=== PATIENT | female | born 1970 | race Caucasian/White ===

== ENCOUNTER 2020-08-19 11:31 | Outpatient (REF) | payer BC, SELFPAY ==
--- NOTE | ~2020-08-19 | MM_ITS ---
EXAMINATION: MM SCREENING DIGITAL BREAST TOMOSYNTHESIS, BILATERAL CLINICAL INFORMATION: Screening. Asymptomatic. The lifetime risk of breast cancer based on the Tyrer-Cuzick Model is 7%. COMPARISON: Mammography: 03/12/2018, 01/23/2017, 01/16/2017 TECHNIQUE: Digital breast tomosynthesis is performed in both the craniocaudal and mediolateral oblique views along with computer-aided detection (CAD). Synthesized 2D images are generated from the tomosynthesis. FINDINGS: The breasts are heterogeneously dense, which may obscure small masses (ACR BI-RADS breast composition Category c). Right breast parenchymal pattern is similar to prior studies. No developing density or interval mass or architectural abnormality. Neither breast shows abnormal calcifications. The axilla and skin contours are unremarkable. Left CC view has asymmetric density central breast along posterior nipple line 5 cm from nipple. This may represent shifting fibroglandular tissue with positioning. Patient will be recalled to further characterize. MM/MM tomosynthesis screening BI IMPRESSION: 1. Left: Asymmetric density central breast on CC view, possibly summation artifact. 2. Right: No mammographic evidence of malignancy. ASSESSMENT: BI-RADS 0: Incomplete - Need Additional Imaging Evaluation RECOMMENDATION: 1. Additional views of the left breast (3D spot CC; 3D rolled CC x2). 2. Targeted ultrasound if warranted after review of the additional views. 3. Radiology department staff will contact the patient for additional imaging. This patient's information was entered into a reminder system with a target due date for their next mammogram.
== END 2020-08-19 11:32 | disposition home or self-care (01) ==
LOC: HO.MAMMO 11:31
PROVIDERS: PCP Nurse Practitioner Family; Visit Provider Nurse Practitioner Family
DX: Z12.31 Encounter for screening mammogram for malignant neoplasm of breast (principal)
CPT/HCPCS: 77063; 77067

== ENCOUNTER 2020-08-24 11:15 | Outpatient (REF) | payer BC, SELFPAY ==
--- NOTE | ~2020-08-24 | MM_ITS ---
EXAMINATION: MM DIAGNOSTIC DIGITAL BREAST TOMOSYNTHESIS, LEFT CLINICAL INFORMATION: Recall from screening for asymmetric density central breast near posterior nipple line limited to one view, possibly summation artifact or shifting fibroglandular tissue. COMPARISON: Mammography: 08/19/2020, 03/12/2018, 01/16/2017 TECHNIQUE: Digital breast tomosynthesis is performed. 2D images are generated from the tomosynthesis. The following views are obtained: 3-D rolled CC x2, 3-D spot CC. FINDINGS: The breasts are heterogeneously dense, which may obscure small masses (ACR BI-RADS breast composition Category c). Additional views show no persistent asymmetric density. There is no developing density or interval mass or architectural abnormality. Results are discussed with the patient at time of visit. MM/MM tomosynthesis added views L IMPRESSION: Additional views show no persistent asymmetric density. ASSESSMENT: BI-RADS 1: Negative RECOMMENDATION: Routine annual mammography screening. This patient's information was entered into a reminder system with a target due date for their next mammogram.
== END 2020-08-24 11:16 | disposition home or self-care (01) ==
LOC: HO.MAMMO 11:15
PROVIDERS: Visit Provider Nurse Practitioner Family
DX: R92.2 Inconclusive mammogram (principal)
CPT/HCPCS: 77061; 77065

== ENCOUNTER 2023-04-24 09:16 | Emergency (ER) | payer OTHER, SELFPAY ==
[2023-04-24 09:56] VITALS: BP 144/71; PULSE 67; RESP 18; TEMP 36.6; O2SAT 99; BMI 35.4
[2023-04-24 12:32] VITALS: BP 138/70; PULSE 69; RESP 16; TEMP 36.7; O2SAT 99
--- NOTE | 2023-04-24 12:45 | ED.BACK ---
HPI - Back Pain/Injury General Chief Complaint: Back Pain/Injury Stated Complaint: Back pain Time Seen by Provider: 04/24/23 12:30 Source: patient Mode of arrival: ambulatory Limitations: no limitations History of Present Illness HPI Narrative: 52-year-old female presents with complaint of atraumatic left lower back pain with radiation to left lower extremity just above the knee X 1.5 weeks. Patient reports pain started suddenly, worse with movement better at rest. Patient denies blunt trauma, numbness, tingling, fevers, chills IV drug abuse, history of steroid, numbness, tingling, urinary/bowel incontinence/retention, weakness. Related Data Previous Rx's Medication Instructions Recorded ketorolac 10 mg tablet 10 mg PO TID PRN pain 5 days #15 04/24/23 tabs lidocaine 5 % topical patch 1 patch topical DAILY PRN pain #15 04/24/23 ea Allergies Allergy/AdvReac Type Severity Reaction Status Date / Time No Known Allergies Allergy Unverified 04/24/23 09:55 Review of Systems Review of Systems: Constitutional : No Weight loss, No Fever, No Chills, ENT/Mouth : No Hearing loss, No Ear Pain, No Nasal Congestion, No Sinus Pain, No Hoarseness, No sore throat, No Rhinorrhea, No Swallowing Difficulty Cardiovascular : No Chest Pain, No SOB Respiratory : No Cough, No Dyspnea Gastrointestinal : No Nausea, No Vomiting, No Diarrhea, No abdominal Pain, No Hematochezia, No Melena Genitourinary : No Dysuria, No Urinary Frequency, No Hematuria, No Urinary Incontinence, Musculoskeletal : positive back pain Skin : No Skin Lesions, No rash Neuro : No Weakness, No Numbness, No Paresthesias, no loss of bowel or bladder incontinence, no saddle anesthesia Yes all other systems are reviewed and are negative [facility] Past Medical History Attestation statement: The following information was validated with the patient. Source: old records reviewed and nursing notes reviewed Onset Date is defined in the Problem List Problems that require an onset date and time if occurred within 24 hrs of arrival to the ED Aortic Dissection and Rupture; Neurologic impairment; Cardiopulmonary Arrest; Endotracheal Intubation; Insertion or Replacement of Mechanical Circulatory Assist Device Social History Social History Smoked in Last 30 Days: Yes Use of substances other than those prescribed or required for medical reasons: No Advance Directives: No Advance Directives Information Provided: Yes Patient : No Physical Exam Vital Signs: Vital Signs: Last Vital Signs Temp 98.0 F 04/24/23 12:32 Pulse 69 04/24/23 12:32 Resp 16 04/24/23 12:32 BP 138/70 04/24/23 12:32 Pulse Ox 99 04/24/23 12:32 O2 Del Method Room Air 04/24/23 12:32 BMI result Body Mass Index 35.4 vss Appearance: Alert.? Oriented X3.? No acute distress.? Head: Normocephalic, atraumatic, no step-offs or deformities Eyes: Pupils equal, round and reactive to light.? CVS: Normal heart rate and rhythm.? Pulses normal.? Respiratory: No respiratory distress.? Breath sounds normal.? Abdomen: Soft and nontender.? Skin: Skin warm and dry.? Normal skin color.? Normal skin turgor.? Extremities: No lower extremity edema.? No calf ttp. 5/5 strength to bilateral upper and lower extremities Back: No midline tenderness, no C-spine tenderness, full range of motion, no CVA tenderness bilaterally + left sided lower lumbar paraspinous muscle ttp no midline tenderness. No foot drop b/l. 2+ DP, AT, PT and popliteal pulses equal and b/l Neuro: Oriented X 3.? No motor deficit.? No sensory deficit. CN 2-12 intact . No saddle paresthesias. Course Reevaluation(s) Reevaluation #1: UA without infection. Patient was discharged home she is feeling better after Toradol. In Educated patient on diagnosis and treatment plan, answered all question, patient verbalizes understanding. At this time patient will be discharged home, advised to return with new or worsening symptoms. Educated on worrisome signs and symptoms and when to return. At this time I feel comfortable discharge home. Time: 14:56 Medications Administered Discontinued Medications Generic Name Dose Route Start Last Admin Trade Name Freq PRN Reason Stop Dose Admin Ketorolac Tromethamine 30 mg 04/24/23 12:56 04/24/23 13:16 Ketorolac Tromethamine 30 Mg/Ml Vial IM 04/24/23 12:57 30 mg ONCE ONE Administration Lidocaine 1 patch 04/24/23 12:56 04/24/23 13:16 Lidocaine 4 % Patch Adh..Patch TRANSDERMA 04/24/23 12:57 1 patch ONCE ONE Administration Protocol Medical Decision Making Medical Decision Making MDM Narrative: 52-year-old female presents with left lower back pain with radiation into left lower extremity Physical exam left lumbar paraspinous tenderness. Full range of motion to back. No saddle paresthesias. Ambulatory. History and physical exam concerning for lumbar radiculopathy versus sciatica versus lumbar paraspinous muscle spasms. Unlikely cauda equina, epidural abscess, cord compression. Unlikely pylori obstructing uropathy, less likely kidney stone, UTI. Plan- labs, pain control Differential Diagnosis Differential Diagnoses: The differential diagnosis associated with the presentation includes History and physical exam concerning for lumbar radiculopathy versus sciatica versus lumbar paraspinous muscle spasms. Unlikely cauda equina, epidural abscess, cord compression. Unlikely pylori obstructing uropathy, less likely kidney stone, UTI. Admission/Observation Consideration of admission/observation: Escalation of care including admission/observation considered Lab Data Labs: Lab Results 04/24/23 Range/Units 13:43 Urine Color Yellow Urine Appearance Clear Urine pH 8.5 (5.0-9.0) Ur Specific [place] 1.010 (1.005-1.025) Urine Protein Negative (Neg-Trace) mg/dL Urine Glucose (UA) Negative (Negative) mg/dL Urine Ketones Negative (Negative) mg/dL Urine Blood Negative (Negative) Urine Nitrite Negative (Negative) Ur Leukocyte Esterase Negative (Negative) Discharge Plan Discharge Clinical Impression: Lumbar radiculopathy Patient Disposition: Home, Self-Care Instructions: Acute Low Back Pain (ED), Lumbar Radiculopathy (ED) Additional Instructions: Take your medications as prescribed. If you were prescribed antibiotics today, it is important that you take your medication to their entirety, do not skip any doses, do not finish them early. Follow-up with your primary care provider this week. Return to the emergency department with new or worsening symptoms. Such as fevers, chills, chest pain, shortness of breath, nausea, vomiting, dizziness, headache, vision changes, lethargy In case of emergency call 911 Toradol has been sent to your pharmacy, you tolerated this well in the department. Please take this as prescribed do not take this with ibuprofen, or other NSAIDs, do not mix this with alcohol. Side effects of this medication including increased risk for bleeding and possible kidney injury. Prescriptions: New ketorolac 10 mg tablet 10 mg PO TID PRN (Reason: pain) 5 Days Qty: 15 0RF lidocaine 5 % adhesive patch,medicated 1 patch topical DAILY PRN (Reason: pain) Qty: 15 0RF Rx Instructions: leave on most painful area for up to 12 hrs Referrals: [facility] [Provider Group] - 2 days Physician,Unknown J [Primary Care Provider] - 2 days Stand Alone Forms: Work/School Release Interventions: ED Discharge Assessment Last Done: 04/24/23 14:01 Discharge Date/Time: 04/24/23 14:02
[2023-04-24] MEDS: Lidocaine 4 % Patch ADH..PATCH 1 PATCH TRANSDERMA (13:16)
[2023-04-24] MEDS: Ketorolac Tromethamine 30 MG/ML VIAL IM (13:16)
[2023-04-24 13:53] LABS: Appearance Urine Clear; Color Urine Yellow; Glucose Urine UA Negative (Negative); Leukocyte Esterase Urine Negative (Negative); Nitrite Urine Negative (Negative); PH 8.5 (5.0-9.0); Urine Blood Negative (Negative); Urine Ketones Negative (Negative); Urine Protein Negative (Neg-Trace)
== END 2023-04-24 14:02 | disposition home or self-care (01) ==
PROVIDERS: Physician Assistant; Emergency Provider Emergency Medicine
DX: M54.16 Radiculopathy, lumbar region (principal); M54.50 Low back pain, unspecified
CPT/HCPCS: 81003; 96372; 99284; J1885

== ENCOUNTER 2023-05-09 09:27 | Outpatient (REF) | payer OTHER, SELFPAY ==
--- NOTE | ~2023-05-09 | XR_ITS ---
EXAMINATION: XR LUMBOSACRAL SPINE CLINICAL INFORMATION: Reason for Exam LOW BACK PAIN/LOWER EXTREMITY COMPARISON: Lumbar spine radiographs 10/29/2008 TECHNIQUE: 3 views of the lumbar spine FINDINGS: There are 6 nonrib-bearing lumbar-type vertebral bodies and it is difficult to discern if the first nonrib-bearing lumbar type vertebral body should be designated T12 or L1 without additional imaging. Vertebral body heights are maintained. Dextroconvex curvature of the lumbar spine. Mild multilevel degenerative disc disease with borderline loss of disc space height with small disc osteophyte complex and facet arthropathy. Paravertebral soft tissues are unremarkable. XR/XR lumbar spine 2-3V IMPRESSION: * Transitional lumbosacral anatomy as detailed above. * Mild multilevel degenerative disc disease.
== END 2023-05-09 09:28 | disposition home or self-care (01) ==
LOC: HO.XRAY 09:27
PROVIDERS: Visit Provider Physical Medicine & Rehabilitation
DX: M54.50 Low back pain, unspecified (principal)
CPT/HCPCS: 72100

== ENCOUNTER 2024-05-06 12:55 | Outpatient (REF) | payer OTHER, SELFPAY | END 2024-05-06 12:56 | disposition home or self-care (01) | LOC: HO.MAMMO 12:55 | PROVIDERS: Visit Provider Internal Medicine | DX: Z12.31 Encounter for screening mammogram for malignant neoplasm of breast (principal) | CPT/HCPCS: 77063; 77067 ==

== ENCOUNTER 2024-07-04 08:45 | Outpatient (REF) | payer OTHER, SELFPAY ==
--- NOTE | ~2024-07-04 | MM_ITS ---
EXAMINATION: MM DIAGNOSTIC DIGITAL BREAST TOMOSYNTHESIS, LEFT Limited left breast ultrasound. CLINICAL INFORMATION: Call back from screening for asymmetries in the left breast. COMPARISON: Mammography: Available priors on PACS. TECHNIQUE: Digital breast tomosynthesis is performed in both the craniocaudal and mediolateral oblique views along with computer-aided detection (CAD). Synthesized 2D images are generated from the tomosynthesis. FINDINGS: The breasts are heterogeneously dense, which may obscure small masses (ACR BI-RADS breast composition Category c). Oval mass in the superior left breast persists on additional imaging. Tissues masses calcifications or other abnormal findings. Targeted color Doppler ultrasound scanning in the upper outer breast from 11-4 o'clock demonstrates a simple cyst at 2:00 8 cm from the nipple measuring 10 x 9 x 9 mm which correlates with the oval mass on mammography and is benign. There is no internal vascular flow and there is posterior enhancement. MM/MM tomosynthesis added views L IMPRESSION: Simple cyst on ultrasound. Benign. ASSESSMENT: BI-RADS BI-RADS 2 - Benign Findings RECOMMENDATION: 1 year F/U Results were provided to the patient at time of visit by the technologist. This patient's information was entered into a reminder system with a target due date for their next mammogram. Electronically signed by: Faye Ramos DO 07/04/2024 10:21 AM EDT
--- OUTSIDE RECORDS SUMMARY | 2024-07-04 09:02 | XMS_ITS | Encounter Summary ---
Author Organization [facility] Address [address] [place] [address] Care Team Providers Care Testing Coordinator Name Role Phone Unavailable Primary Care Provider Unavailabl e Encounter Details Date Type Department Care Team (Late st Contact Info) Description 04/14/2024 Lab Requisition [facility] - Main Lab [address] [facility] [place] [address] Alannah Mahajan MD [address] [place] [address] [place], [place] [address] Encounter for screening for malignant neoplasm of cervix Social History Tobacco Use Types Packs/Day Years Used Date Smoking Tobacco: Never Assessed Comments Unknown Sex and Gender Information Value Date Recorded Sex Assigned at Not on file Legal Sex Female 8:11 PM EST Gender Identity Not on file Sexual Orientation Not on file documented as of this encounter Plan of Treatment Not on file documented as of this encounter Procedures Procedure Name Priority Date/Time Associated Diagnosis Comments HPV WITH REFLEX GENOTYPE Routine 04/08/2024 12:00 AM EST Encounter for screening for malignant neoplasm of cervix PAP SMEAR Routine 04/08/2024 12:00 AM EST Encounter for screening for malignant neoplasm of cervix documented in this encounter Results * HPV with reflex genotype (04/08/2024 12:00 AM EST) HPV Negative Negative LAB MICROBIOLOGY METHOD 04/18/2024 2:06 PM EST [facility] Brushing/Spatula Cervix uteri structure / Unknown 04/08/2024 04/14/2024 7:47 AM EST us Alannah Mahajan MD LAB MOLECULAR DIAGNOSTICS ORD ERABLES Final Result Performing Organization Address City/[facility]/ZIP Co de Phone Number [facility] [address] [place] [address], [place] [phone] * Pap smear (04/08/2024 12:00 AM EST) Interpretation Negative for intraepithelial lesion or malignancy 04/21/2024 10:46 AM EST [facility] General Categorization Negative 04/21/2024 10:46 AM [facility] Specimen Adequacy Satisfactory for evaluation, endocervical/gonzalez sformation zone component absent 04/21/2024 10:46 AM [facility] Pap Methodology Liquid Based Pap Test 04/21/2024 10:46 AM EST [facility] Disclaimer The Pap test is a screening test which carries an inherent false negative rate. These test results should be correlated with the patient's clinical findings and history. This Pap test was processed using an automated screening system. Technical cytopathology services provided by [facility], at [address] [place] [id number] (CLIA # [id number]/Tin Murrieta MD, Foamite Mixer.) 04/21/2024 10:46 AM [facility] Console Pap Interpretation Reported 04/21/2024 10:46 AM [facility] Brushing/Spatula Cervix uteri structure / Unknown 04/08/2024 04/14/2024 7:47 AM EST us Alannah Mahajan MD LAB CYTOLOGY ORDERABLES Final Result [facility] [address] [place] [address], [place] [phone] documented in this encounter Visit Diagnoses Diagnosis Encounter for screening for malignant neoplasm of cervix documented in this encounter
--- OUTSIDE RECORDS SUMMARY | 2024-07-04 09:02 | XMS_ITS | Clinical Summary ---
Author Organization [address] [facility] Address [address] [place] [address] Phone Care Team Providers Care Continuing Education Specialist Name Role Phone Unavailable Primary Care Provider Unavailabl e Encounters Date Type Department Care Team Description 04/14/2024 Lab Requisition [facility] - Main Lab [address] [facility] [place] [address] Alannah Mahajan MD Encounter for screening for malignant neoplasm of cervix from Last 3 Months Social History Tobacco Use Types Packs/Day Years Used Date Smoking Tobacco: Never Assessed Comments Unknown Sex and Gender Information Value Date Recorded Sex Assigned at Not on file Legal Sex Female 8:11 PM EST Gender Identity Not on file Sexual Orientation Not on file Plan of Treatment Health Maintenance Due Date Last Done Comments Breast Cancer Screening 1970 DTaP,Tdap,and Td Vaccines (1 - Tdap) 1989 Hepatitis B Vaccines (1 of 3 - 19+ 3-dose series) 1989 Pneumococcal Vaccine: 50+ Ye ars (1 of 1 - PCV) 2020 Zoster Vaccines (1 of 2) 2020 Colorectal Cancer Screening: Colonoscopy 05/17/2023 Depression Screening 05/17/2023 HIV Screening 05/17/2023 Hepatitis C Screening 05/17/2023 Social Influencers of Health Screening 05/17/2023 COVID-19 Vaccine ( - 2023-2 5 season) 2023 Influenza Vaccine (#1) 2023 Cervical Cancer Screening: HPV 04/08/2029 04/08/2024 HIB Vaccines Aged Out No longer eligi ble based on patient's age to complete this topic HPV Vaccines Aged Out No longer eligi ble based on patient's age to complete this topic Hepatitis A Vaccines Aged Out No long er eligible based on patient's age to complete this topic IPV Vaccines Aged Out No longer eligi ble based on patient's age to complete this topic MMR Vaccines Aged Out No longer eligi ble based on patient's age to complete this topic Meningococcal ACWY Vaccine Aged Out N o longer eligible based on patient's age to complete this topic Meningococcal B Vacine Aged Out No lo nger eligible based on patient's age to complete this topic Pneumococcal Vaccine: Pediat rics (0 to 5 Years) and At-Risk Patients (6 to 64 Years) Aged Out No longer eligi ble based on patient's age to complete this topic RSV Immunization Patients Un nima 20 months Aged Out No longer eligible b ased on patient's age to complete this topic Varicella Vaccines Aged Out No longer eligible based on patient's age to complete this topic Procedures Procedure Name Priority Date/Time Associated Diagnosis Comments PAP SMEAR Routine 04/08/2024 12:00 AM EST Encounter for screening for malignant neoplasm of cervix HPV WITH REFLEX GENOTYPE Routine 04/08/2024 12:00 AM EST Encounter for screening for malignant neoplasm of cervix from Last 3 Months Results * HPV with reflex genotype (04/08/2024 12:00 AM EST) HPV Negative Negative LAB MICROBIOLOGY METHOD 04/18/2024 2:06 PM EST [facility] Brushing/Spatula Cervix uteri structure / Unknown 04/08/2024 04/14/2024 7:47 AM EST us Alannah Mahajan MD LAB MOLECULAR DIAGNOSTICS ORD ERABLES Final Result [facility]) [facility] [address] [place] [address], [place] [phone] * Pap smear (04/08/2024 12:00 AM EST) Interpretation Negative for intraepithelial lesion or malignancy 04/21/2024 10:46 AM EST [facility] General Categorization Negative 04/21/2024 10:46 AM [facility] Specimen Adequacy Satisfactory for evaluation, endocervical/gonzalez sformation zone component absent 04/21/2024 10:46 AM [facility] Pap Methodology Liquid Based Pap Test 04/21/2024 10:46 AM [facility] Disclaimer The Pap test is a screening test which carries an inherent false negative rate. These test results should be correlated with the patient's clinical findings and history. This Pap test was processed using an automated screening system. Technical cytopathology services provided by [facility], at [address] [place] [id number] (CLIA # [id number]/Tin Murrieta MD, Chassis Inspector.) 04/21/2024 10:46 AM [facility] Console Pap Interpretation Reported 04/21/2024 10:46 AM [facility] Brushing/Spatula Cervix uteri structure / Unknown 04/08/2024 04/14/2024 7:47 AM EST us Alannah Mahajan MD LAB CYTOLOGY ORDERABLES Final Result [facility] [address] [place] [address], from Last 3 Months Insurance * Guarantor: July Account Type Relation to Patient Date of Phone Billing Address Personal/Family Self 1970 [phone] x1 (Work) [address] [place] [address] [place]
--- OUTSIDE RECORDS SUMMARY | 2024-07-04 09:02 | XMS_ITS | Continuity of Care Document ---
Author Organization [facility] Aden Yong lt Address [address] [place] [address]- Care Team Providers Care Custody Officer Name Role Phone Bryan NO, Bhavana Quinonez Primary Care Physician [phone] [place] [facility] [id number] Date(s): 05/22/24 - 06/21/24 [facility] Adult [address] [place] [address]- Encounter Type: Triage Allergies, Adverse Reactions, Alerts No Known Allergies Immunizations Given and Recorded Vaccine Date Status Refusal Reason influenza virus vaccine, inactivated 1 05/31/22 Gi kaity influenza virus vaccine, inactivated 02/20/12 Give n SARS-CoV-2 (COVID-19) mRNA BNT-162b2 vac 08/22/20 Recorded SARS-CoV-2 (COVID-19) mRNA BNT-162b2 vac 08/01/20 Recorded pneumococcal 23-valent vaccine 11/24/14 Given diphtheria/tetanus/pertussis, acel(DTaP) 2 05/09/12 Given tetanus-diphtheria toxoids (Td) 07/29/03 Recorded 1Result Comment: [facility]-[id number] 2Admin Note: PREVIOUS PCP Medications amLODIPine 2.5 mg oral tablet 1 tablet, By Mouth, Daily, # 90 tablet, 0 Refills, Maintenance, 05/23/24 2:46:00 PM EST, [facility], 158, cm, 08/21/23 11:14:00 EDT, Height Start Date: 05/23/24 Status: Ordered Quantity: 90.0 Unit: tablet Repeat number: 1 buPROPion 300 mg/24 hours (XL) oral tablet, extended release 1 tablet, By Mouth, Daily, # 90 tablet, 1 Refills, Maintenance, 06/28/23 9:49:00 AM EST, [facility], 158, cm, 05/31/22 12:58:00 EST, Height Start Date: 06/28/23 Status: Ordered Quantity: 90.0 Unit: tablet Repeat number: 1 BUPROPION HCL ER (XL) 300MG TB24 BUPROPION HCL ER (XL) 300MG TB24, 1, tablet, By Mouth, Daily, # 90 tablet, 1 Refills, Maintenance, 12/26/23 10:08:00 AM EDT, 158, cm, 08/21/23 11:14:00 EDT, Height Start Date: 12/26/23 Status: Ordered Quantity: 90.0 Unit: tablet Repeat number: 1 lisinopril 10 mg oral tablet 1, tablet, By Mouth, Daily, # 90 tablet, Refills 3, Maintenance, 06/28/23 9:49:00 AM EST, Route to Pharmacy Electronically, [facility], 158, cm, 05/31/22 12:58:00 EST, Height Start Date: 06/28/23 Status: Ordered Quantity: 90.0 Unit: tablet Repeat number: 1 montelukast 10 mg oral tablet 1, tablet, By Mouth, Daily in PM, # 90 tablet, Refills 1, Maintenance, 12/26/23 10:08:00 AM EDT, Route to Pharmacy Electronically, [facility], 158, cm, 08/21/23 11:14:00 EDT, Height Start Date: 12/26/23 Status: Ordered Quantity: 90.0 Unit: tablet Repeat number: 1 Naprosyn 500 mg oral tablet 1 tablet = 500 mg, By Mouth, 2 times a day, # 20 tablet, 0 Refills, Maintenance, 05/30/19 2:15:00 PM EST, [facility], 158, cm, 05/30/19 13:55:00 EST, Height Start Date: 05/30/19 Status: Ordered Quantity: 20.0 Unit: tablet Repeat number: 1 Nicoderm C-Q Clear 14 mg/24 hr transdermal film, extended release 1 patch, Topically, Daily, # 30 patch, 1 Refills, Maintenance, 01/04/21 10:55:00 AM EDT, Patch, [facility], Partial fill upon patient request if the prescription is for a schedule IIopioid drug., 158, cm, 01/04/21 10:01:00 EDT, Height, 75.9, kg, 06/24/19 8:07:00 EST, Dry Weight Start Date: 01/04/21 Status: Ordered Quantity: 30.0 Unit: patch Repeat number: 2 Indication: Nicotine dependence, unspecified, uncomplicated Nicoderm C-Q Clear 21 mg/24 hr transdermal film, extended release 1 patch, Topically, Daily, # 30 patch, 1 Refills, Maintenance, 07/28/20 12:28:00 PM EDT, Patch, [facility], Partial fill upon patient request if the prescription is for a schedule II opioid drug., 158, cm, 06/29/20 9:22:00 EST, Height, 75.9, kg, 06/24/19 8:07:00 EST, Dry Weight Start Date: 07/28/20 Status: Ordered Quantity: 30.0 Unit: patch Repeat number: 2 Nicotine 7 mg/24 hour patch 1 patch, Topically, Daily, # 30 patch, 1 Refills, Maintenance, 06/29/20 9:59:00 AM EST, Patch, [facility], Partial fill upon patient request if the prescription is for a schedule II opioid drug., 1 patch Topically Daily, 158, cm, 06/29/20 9:22:00 EST, Height, 75.9, kg, 06/24/19 8:07:00 EST, Dry Weight Start Date: 06/29/20 Status: Ordered Quantity: 30.0 Unit: patch Repeat number: 2 ProAir HFA 90 mcg/inh inhalation aerosol with adapter 2, puffs, Inhalation, Every 6 hours, PRN, # 8.5 Gm, Refills 0, Tot. Refills 0, Maintenance, 08/20/2409:34:00 AM EDT, Aerosol, Route to Pharmacy Electronically, [id number], [facility], 158, cm, 05/31/22 12:58:00 EST, Height Start Date: 08/21/23 Status: Ordered Quantity: 8.5 Unit: g Repeat number: 1 Indication: Cough, unspecified ProAir HFA 90 mcg/inh inhalation aerosol with adapter 2, puffs, Inhalation, Every 6 hours, PRN, # 8.5 Gm, Refills 3, Tot. Refills 3, Maintenance, 06/29/20 9:59:00 AM EST, Aerosol, Route to Pharmacy Electronically, [id number], [facility], 158, cm, 06/29/20 9:22:00 EST, Height, 75.9, kg, 06/24/19 8:07:00 EST, Dry Weight Start Date: 06/29/20 Status: Ordered Quantity: 8.5 Unit: g Repeat number: 4 Ventolin HFA 108 mcg/inh inhalation aerosol with adapter 2 puffs, Inhalation, Every 4 hours, PRN for wheezing, # 1 each, 3 Refills, Maintenance, 07/29/18 11:02:03 AM EDT, Aerosol, [facility] Start Date: 07/29/18 Stop Date: 11/26/18 Status: Ordered Quantity: 1.0 Unit: each Repeat number: 4 Problem List Condition Confirmation Course Effective Dates Status H ealth Status Informant Vaccine reaction Confirmed Active Anxiety Confirmed Active Asthma Confirmed Active Chest pain Confirmed Active Cough Confirmed Active Hyperlipidemia Confirmed Active HTN (hypertension) Confirmed Active Anxiety and depression Confirmed Active Obese class I Confirmed Active Obesity (BMI 30-39.9) Confirmed Active Skin lesions Confirmed Active Smoker Confirmed Active Tobacco use Confirmed Active Varicose veins Confirmed Active Social History Social History Type Response Smoking Status Current every day sm howardtommy entered on: 07/16/17 Sex Sex Representation Female (finding) Patient Care team information Care Team Personnel Name: Bhavana Elizondo Position: S PCO Associate Professional Member Role: PCP Address: [address] [place] [id number] [[email or web address] Telecom: Care Team Related Persons Name: BEULAH HANNA Name: PAM KONG Insurance Providers Guarantor name: July Health Plan Information #: 1 Payer: [employer] Member Number: NA Policy Number: NA Group Number: NA
== END 2024-07-04 08:46 | disposition home or self-care (01) ==
LOC: HO.MAMMO 08:45
PROVIDERS: PCP Internal Medicine; Visit Provider Internal Medicine
DX: N64.89 Other specified disorders of breast (principal)
CPT/HCPCS: 76642; 77061; 77065

== ENCOUNTER → 2024-07-04 09:00 | Outpatient (BNV) | payer OTHER, SELFPAY | PROVIDERS: PCP Internal Medicine; Visit Provider Internal Medicine | DX: R92.8 Other abnormal and inconclusive findings on diagnostic imaging of breast (principal) | CPT/HCPCS: 76642; 77061; 77065 ==

== ENCOUNTER 2024-07-17 08:14 | Outpatient (REF) | payer OTHER, SELFPAY ==
[2024-07-17 08:30] LABS: MANUAL DIFF FLAG NO
[2024-07-17 09:45] LABS: Basophils Percent Auto 0.5 % (0-2); Eosinophils Absolute Auto 0.2 X10*3/uL (0.0-0.4); Eosinophils Percent Auto 2.9 % (0-4); Hematocrit 36.4 % (37.0-47.0); Hemoglobin 12.4 g/dl (12.0-16.0); Imm Gran Abs Auto 0.02 X10*3/uL (0.00-0.03); Imm Gran Pct Auto 0.4 % (0.0-0.4); Lymphocytes Absolute Auto 1.5 X10*3/uL (1.2-4.9); Lymphocytes Percent Auto 27.9 % (20-40); Mean Corpuscular HGB Conc 34.1 g/dl (31.0-35.0); Mean Corpuscular Hemoglobin 32.4 pg (27.0-33.0); Mean Platelet Volume 10.8 fL (9.4-12.3); Monocytes Absolute Auto 0.4 X10*3/uL (0.1-1.2); Monocytes Percent Auto 7.7 % (2-11); Neutrophils Absolute Auto 3.3 x10*3/uL (2.0-8.3); Neutrophils Percent Auto 60.6 % (45-73); Platelet Count 409 X10*3/uL (160-400); Red Blood Count 3.83 X10*6/uL (4.20-5.50); Red Cell Distribution Width 12.9 % (11.0-16.0); White Blood Count 5.5 X10*3/uL (4.8-10.8)
[2024-07-17 10:32] LABS: Alanine Aminotransferase 30 U/L (0-31); Albumin Level 4.5 g/dL (3.5-5.0); Alkaline Phosphatase 67 U/L (39-117); Anion Gap 12 (12-20); Aspartate Amino Transferase 25 U/L (5-31); Bilirubin Total 0.3 mg/dL (0.0-1.0); Blood Urea Nitrogen 12 mg/dL (9-16); Calcium 9.7 mg/dL (8.4-10.2); Carbon Dioxide 27 mmol/L (22-29); Chloride 109 mmol/L (96-108); Cholesterol 244 mg/dL (<200); Estimated Glomerular Filt Rate > 60; Glucose Random 88 mg/dL (60-115); HDL Cholesterol 65 mg/dL (>40); LDL Cholesterol Calculated 160 mg/dL (<100); Potassium 4.5 mmol/L (3.3-5.1); Sodium 143 mmol/L (135-145); Total Protein 7.2 g/dL (6.5-8.0); Triglycerides 97 mg/dL (<150)
== END 2024-07-17 08:15 | disposition home or self-care (01) ==
LOC: HO.LAB 08:14
PROVIDERS: PCP Internal Medicine; Visit Provider Internal Medicine
DX: Z00.00 Encounter for general adult medical examination without abnormal findings (principal); I10 Essential (primary) hypertension; Z12.4 Encounter for screening for malignant neoplasm of cervix; Z72.0 Tobacco use
CPT/HCPCS: 36415; 80053; 80061; 85025

== ENCOUNTER 2025-01-16 10:07 | Outpatient (AMB) | payer OTHER, SELFPAY ==
--- NOTE | 2025-01-16 08:05 | MHC.OFFVIS ---
Intake Visit Reasons: Current Smoker Allergies No Known Allergies Allergy (Unverified 04/24/23 09:55) HPI HPI Current Smoker: Details: Initial visit for this 54yo smoker with a 20PYH. Patient started smoking at age 14 for 40 years at 1/2ppd. . Daily marijuana use. Denies second hand smoke exposure. Denies exposure to chemicals or substances like asbestos. . Family history of lung cancer. Mom 62, Aunt 59, Grandfather 62. Denies personal history of cancers. Denies chest CT in last year. . Denies recent travel outside the [place]. Denies recent respiratory illness or recent hospitalization for respiratory issues. History of testing positive for COVID. Admits receiving COVID Vaccine. . Denies fever, chills, new/worsening cough, hemoptysis, hoarseness or dysphagia. Denies significant chest pain, significant dyspnea or unintentional weight loss. Patient Lung Cancer Screening Questionnaire reviewed with patient by provider. . Shared Decision Making Completed. Patient meets criteria. Discussed in detail with patient, the risk vs benefit of LDCT screening. Patient consents to proceed with scan. Discussed smoking cessation. [facility] Medical History (Updated 01/16/25 @ 10:17 by Libby Lopez PA-C) Nicotine dependence, cigarettes, uncomplicated Surgical History (Updated 01/16/25 @ 10:19 by Libby Lopez PA-C) History of lumpectomy History of vein stripping History of History of D&C Family History (Updated 01/16/25 @ 10:26 by Libby Lopez PA-C) Mother Lung cancer Maternal Aunt Lung cancer Maternal Grandfather Lung cancer Social History (Updated 01/16/25 @ 10:17 by Libby Lopez PA-C) Patient Tobacco Use Status: Current everyday Tobacco user Years Smoked: (onset 14yo, 1/2ppd x 40yrs, 20pyh) Assessment & Plan Assessment & Plan (1) Nicotine dependence, cigarettes, uncomplicated: Comment: (onset 14yo, 1/2ppd x 40yrs, 20pyh) Code(s): F17.210 - Nicotine dependence, cigarettes, uncomplicated Category: Medical Plan: - SDM visit completed today in office. - Patient meets criteria for LDCT for lung cancer screening purposes and is asymptomatic. - Smoking cessation counseling offered. Patients can always call [phone]. - Will arrange for a LDCT scan of the chest for screening purposes at [facility]. - Risks, benefits, and alternatives were discussed in detail and the patient agrees to proceed. - Risks discussed include but are not limited to: radiation exposure, anxiety during testing and while awaiting results, false negatives, false positives and possibility of additional intervention such as further imaging or surgical procedures for benign disease. - Benefits are obviously detection of lung cancer at an early stage which can lead to improved outcomes. - Discussed the importance of screening program compliance with adherence to yearly LDCT scan as scheduled - or sooner interval scans for personalized screening regimen. - Discussed follow up plan. Our office will send a letter discussing results and if needed set up phone call and office visit based on CT findings. - Patient educated on results categorization and the management decisions for suspicious findings potentially found on the screening LDCT scan. Any patient with a Lung RADS score of 3 or 4 will be reviewed by a multidisciplinary team at [facility] to form a plan of action in regards to scan findings. - If further work up is warranted for a suspicious lung finding this will be followed by the Lung Cancer Screening program in conjunction with the Thoracic Surgery Department at [facility]. - A copy of the office note and LDCT will be sent to the patient's PCP - as well as documentation on any associated further plans of care. - Incidental findings on LDCT are the PCP's responsibility. These findings are indicated with an S finding on the LDCT Assessment. A note discussing the findings will be sent to the PCP who is then responsible for further management. - All questions answered.? Coding Level of Care Code Lung Cancer Screening G0296 Diagnoses Nicotine dependence, cigarettes, uncomplicated F17.210
--- OUTSIDE RECORDS SUMMARY | 2025-01-16 11:21 | XMS_ITS | Clinical Summary ---
Author Organization [address] [facility] Address [address] [place] [address] Phone Care Team Providers Care Bank And Savings Securities Trader Name Role Phone Unavailable Primary Care Provider Unavailabl e Social History Tobacco Use Types Packs/Day Years [...] 2) 2020 Colorectal Cancer Screening: Colonoscopy 05/17/2023 HIV Screening 05/17/2023 Hepatitis C Screening 05/17/2023 Social Influencers of Health Screening 05/17/2023 Depression Screening 04/23/2024 COVID-19 Vaccine ( - 2023-2 5 season) 2024 Influenza Vaccine (#1) 2024 Cervical Cancer Screening: HPV 04/08/2029 04/08/2024 HIB [...] age to complete this topic Meningococcal B Vaccine Aged Out No l onger eligible based on patient's age to complete [...] neoplasm of cervix from Last 3 Months or Most Recently Relevant to Health Maintenance Results * HPV with reflex genotype (04/08/2024 12:00 AM EST) HPV Negative Negative LAB MICROBIOLOGY METHOD 04/18/2024 2:06 PM EST [facility] Brushing/Spatula Cervix uteri structure / Unknown 04/08/2024 04/14/2024 7:47 AM EST us Alannah Mahajan MD LAB MOLECULAR DIAGNOSTICS ORD ERABLES Final Result [facility] [address] [place] [address], from Last 3 Months or Most Recently Relevant to Health Maintenance Insurance * Guarantor: July Account Type Relation to Patient Date of Phone Billing Address Personal/Family Self 1970 [phone] x1 (Work) [address] [place] [id number] [place] - [place]
--- OUTSIDE RECORDS SUMMARY | 2025-01-16 11:21 | XMS_ITS | Clinical Summary ---
Author Organization [facility] Address [address] [facility] [address] [place] [address] Phone Care Team Providers Care Canvas Worker Name Role Phone Danika Gloria NP Primary Care Provider [phone] Allergies No known active allergies Medications VENTOLIN HFA 90 mcg/actuation inhaler INHALE 2 PUFFS EVERY 4 HOURS NEEDED FOR WHEEZING 3 07/29/2018 Active amLODIPine (NORVASC) 5 MG tablet Take 5 mg by mouth daily. 1 08/05/2018 Active buPROPion (WELLBUTRIN XL) 300 MG ER 24 hr tablet Take 300 mg by mouth daily. 1 08/05/2018 Active FLOVENT HFA 44 mcg/actuation inhaler INHALE 2 PUFFS ONCE DAILY 11 07/29/2018 Active lisinopril (PRINIVIL,ZESTR IL) 10 MG tablet Take 10 mg by mouth daily. 3 08/05/2018 Active montelukast (SINGULAIR) 10 mg tablet Take 10 mg by mouth daily. 11 07/29/2018 Active Active Problems No known active problems Social History Tobacco Use Types Packs/Day Years Used Date Smoking Tobacco: Every Day Smokeless Tobacco: Never Alcohol Use Standard Drinks/Week Comments Not Currently 0 (1 standard drink = 0.6 oz pur e alcohol) Education Answer Date Recorded Are you interested in more education? Not on holly e 08/18/2022 Are you concerned about learning? Not on file 08/18/2022 No 08/18/2022 No 08/18/2022 Digital Access Answer Date Recorded No 09/16/2022 No 09/16/2022 No 09/16/2022 Reliable internet access at home? Not on file 09/16/2022 Device with a working camera? Not on file Comments Unknown Sex and Gender Information Value Date Recorded Sex Assigned at Not on file Legal Sex Female 11:10 AM EDT Gender Identity Not on file Sexual Orientation Not on file Last Filed Vital Signs Vital Sign Reading Time Taken Comments Blood Pressure - - Pulse - - Temperature - - Respiratory Rate - - Oxygen Saturation - - Inhaled Oxygen Concentration - - Weight 77.1 kg (170 lb) 08/21/2018 11:24 AM EDT Height 152.4 cm (5') 08/21/2018 11:24 AM EDT Body Mass Index 33.2 08/21/2018 11:24 AM EDT Plan of Treatment Health Maintenance Due Date Last Done Comments CREATININE LEVEL 1970 LIPID PANEL 1970 POTASSIUM LEVEL 1970 DEPRESSION SCREENING 1982 SMOKING Hx and SMOKELESS TOBACCO SCREENING 08/01/1983 HEPATITIS C SCREENING 1988 HIV ONE-TIME SCREENING (18-6 5 YEARS) 1988 PNEUMOCOCCAL VACCINES (50+ years) (1 of 2 - PCV) 1989 PAP SMEAR 08/01/1991 MAMMOGRAM 2010 Adult Td,Tdap Booster 07/28/2013 07/29/2003 COLOGUARD 08/01/2015 COLONOSCOPY 08/01/2015 COLORECTAL CANCER SCREENING 08/01/2015 FIT TEST 08/01/2015 FOBT 08/01/2015 SIGMOIDOSCOPY 08/01/2015 VIRTUAL COLONOSCOPY 08/01/2015 ZOSTER VACCINES (1 of 2) 2020 INFLUENZA VACCINE (#1) 2024 COVID-19 VACCINE (3 - 2024-2 6 season) 2024 08/22/2020, 08/01/2020 HEPATITIS A VACCINES Aged Out No long er eligible based on patient's age to complete this topic HIB VACCINES Aged Out No longer eligi ble based on patient's age to complete this topic MENINGOCOCCAL VACCINES (ACWY) Aged Out No longer eligible based on patient's age to complete this topic MENINGOCOCCAL VACCINES (B) Aged Out N o longer eligible based on patient's age to complete this topic Medical Devices Not on file Insurance [employer] [place] [id number] [place] [address] [place] [id number] GENERIC COMMERCIAL GENERIC COMMERCIAL GENERIC COMMERCIAL GENERIC COMMERCIAL GENERIC COMMERCIAL GENERIC COMMERCIAL Care Teams Canvas Worker Relationship Specialty Start Date End Date Danika Gloria NP [facility] [place] [address] PCP - General Nurse Practitioner 08/21/18 Additional Source Comments The information contained in this document represents components of the legal health record. It is not the complete legal health record.[facility]
--- OUTSIDE RECORDS SUMMARY | 2025-01-16 11:21 | XMS_ITS | Encounter Summary ---
Author Organization [facility] Address [address] [place] [address] Care Team Providers Care Peoplesoft Functional Analyst Name Role Phone Unavailable Primary Care Provider Unavailabl e Encounter Details Date Type Department Care Team (Late st Contact Info) Description 04/14/2024 Lab Requisition [facility] [address] [place] [address] Alannah Mahajan MD [address] [place] [address] [place], [place] [address] Encounter for screening for malignant neoplasm of [...] LAB MICROBIOLOGY METHOD 04/18/2024 2:[address] [facility] Brushing/Spatula Cervix uteri structure / Unknown 04/08/2024 04/14/2024 7:47 AM EST us Alannah Mahajan MD LAB MOLECULAR DIAGNOSTICS ORD ERABLES Final Result Performing Organization Address City/[facility]/ZIP Co de Phone Number [facility] [address] [place] [address], [place] [phone] * Pap smear (04/08/2024 12:00 AM EST) Interpretation Negative for intraepithelial lesion or malignancy 04/21/2024 10:46 AM EST [facility] General Categorization Negative 04/21/2024 10:46 AM [facility] Specimen Adequacy Satisfactory for evaluation, endocervical/gonzalez sformation zone component absent 04/21/2024 10:46 AM [facility] Pap Methodology Liquid Based Pap Test 04/21/2024 10:46 AM EST [facility] Disclaimer The Pap test is a screening test which carries an inherent false negative rate. These test results should be correlated with the patient's clinical findings and history. This Pap test was processed using an automated screening system. Technical cytopathology services provided by [facility], at [address] [place] [id number] (CLIA # [id number]/Tin Murrieta MD, Supervisor Pressing Department.) 04/21/2024 10:46 AM [facility] Console Pap Interpretation Reported 04/21/2024 10:46 AM [facility] Brushing/Spatula Cervix uteri structure / Unknown 04/08/2024 04/14/2024 7:47 AM EST us Alannah Mahajan MD LAB CYTOLOGY ORDERABLES Final Result [facility] [address] [place] [address], [place] [phone] documented in this encounter Visit Diagnoses Diagnosis Encounter for screening for malignant neoplasm of cervix documented in this encounter
== END 2025-01-16 10:30 | disposition home or self-care (01) ==
LOC: HO.HPS 10:07
PROVIDERS: PCP Internal Medicine; Referring Provider Internal Medicine; Visit Provider Physician Assistant Medical
DX: F17.210 Nicotine dependence, cigarettes, uncomplicated (principal)
CPT/HCPCS: G0296

== ENCOUNTER 2025-01-16 10:26 | Outpatient (REF) | payer OTHER, SELFPAY ==
--- NOTE | ~2025-01-16 | CT_ITS ---
EXAMINATION: CT LUNG SCREENING HISTORY: F17.210 - Nicotine dependence, cigarettes, uncomplicated TECHNIQUE: Low dose axial images were obtained from the sternal notch to upper abdomen without IV contrast per standard departmental protocol. Sagittal and coronal reformatted images were also obtained and reviewed. One or more of the following techniques was used for dose reduction: Automated exposure control, adjustment of the mA and/or kV according to patient size, use of iterative reconstruction technique. DLP: 49 mGy-cm COMPARISON: There are no prior studies available for comparison. FINDINGS: Lung nodules: No pulmonary nodules are identified. Emphysema: mild Coronary Calcification: mild Aortic Arch Calcification: mild Potentially Significant Incidentals : none Additional Chest Findings: There is no pleural or pericardial effusion. No mediastinal or axillary lymphadenopathy is identified. Visualized upper abdomen: There is an 11 mm hypodensity in the right lobe of the liver which is difficult to characterize on this unenhanced examination but likely represents a cyst or hemangioma. The visualized portions of the spleen and adrenals have an unremarkable unenhanced appearance. CT/CT lung screening IMPRESSION: No suspicious pulmonary nodules are identified. LUNG-RADS ASSESSMENT: Lung-RADS 1: Negative MANAGEMENT: Continue annual screening with LDCT in 12 months Category S: N/A Electronically signed by: Reese Pro MD 01/16/2025 11:21 AM EDT
== END 2025-01-16 10:27 | disposition home or self-care (01) ==
LOC: HO.CT 10:26
PROVIDERS: PCP Internal Medicine; Visit Provider Physician Assistant Medical
DX: Z12.2 Encounter for screening for malignant neoplasm of respiratory organs (principal); F17.210 Nicotine dependence, cigarettes, uncomplicated
CPT/HCPCS: 71271; G0296

== ENCOUNTER → 2025-01-16 10:28 | Outpatient (BNV) | payer OTHER, SELFPAY | PROVIDERS: PCP Internal Medicine; Visit Provider Radiology Diagnostic Radiology | DX: F17.210 Nicotine dependence, cigarettes, uncomplicated (principal) | CPT/HCPCS: 71271 ==

== ENCOUNTER 2025-02-24 09:51 | Outpatient (REF) | payer OTHER, SELFPAY ==
[2025-02-24 10:44] LABS: Alanine Aminotransferase 43 U/L (0-31); Albumin Level 4.7 g/dL (3.5-5.0); Alkaline Phosphatase 74 U/L (39-117); Anion Gap 12 (12-20); Aspartate Amino Transferase 32 U/L (5-31); Blood Urea Nitrogen 12 mg/dL (9-16); Calcium 9.5 mg/dL (8.4-10.2); Carbon Dioxide 28 mmol/L (22-29); Chloride 106 mmol/L (96-108); Cholesterol 150 mg/dL (<200); Estimated Glomerular Filt Rate > 60; HDL Cholesterol 61 mg/dL (>40); Potassium 4.3 mmol/L (3.3-5.1); Sodium 142 mmol/L (135-145); Total Protein 7.2 g/dL (6.5-8.0); Triglycerides 67 mg/dL (<150)
--- OUTSIDE RECORDS SUMMARY | 2025-02-24 11:21 | XMS_ITS | Clinical Summary ---
Author Organization [facility] Address [address] [facility] [address] [place] [address] Phone Care Team Providers Care Operations [place] Name Role Phone Danika Gloria NP Primary Care Provider [phone] Allergies No known active allergies Medications VENTOLIN [...] - 2024-2 6 season) 2024 08/22/2020, 08/01/2020 RSV VACCINE (1 - 1-dose 75+ series) 2045 HEPATITIS A VACCINES Aged Out No long [...] topic Medical Devices [place] [id number] [place] [id number] GENERIC COMMERCIAL Member Subscriber Plan / Payer ( fective 2018-Present) Name:Bottles, July Relation to Subscriber:Self Name:BottlesJuly Payer ID:Not on file Type:Indemnity Address: [address] [facility] [place] [id number] [place] [address] GENERIC COMMERCIAL Member Subscriber Plan / Payer ( fective 2018-) Name:BottlesJuly Relation to Subscriber:Self Name:Bottles, July Payer ID:Not on file Type:Indemnity Address: [address] [facility] [place] [id number] [place] [address] GENERIC COMMERCIAL GENERIC COMMERCIAL GENERIC COMMERCIAL GENERIC COMMERCIAL GENERIC COMMERCIAL GENERIC COMMERCIAL Care Teams Operations [place] Relationship Specialty Start Date End Date Danika Gloria NP [address] [place] [id number] PCP - General Nurse Practitioner 08/21/18 Additional Source Comments The information contained in this document represents components of the legal health record. It is not the complete legal health record.[facility]
--- OUTSIDE RECORDS SUMMARY | 2025-02-24 11:21 | XMS_ITS | Clinical Summary ---
Author Organization [address] [facility] Address [address] [place] [address] Phone Care Team Providers Care Retail Shift Leader Name Role Phone Unavailable Primary Care Provider [...] Last Done Comments Breast Cancer Screening 1970 Colorectal Cancer Screening: Colonoscopy 1970 DTaP,Tdap,and Td Vaccines (1 - Tdap) 1989 Hepatitis B Vaccines (1 of 3 - 19+ 3-dose series) 1989 Pneumococcal Vaccine: 50+ Ye ars (1 of 1 - PCV) 2020 Zoster Vaccines (1 of 2) 2020 HIV Screening 05/17/2023 Hepatitis C Screening 05/17/2023 Social Influencers of Health Screening 05/17/2023 Depression Screening 04/23/2024 COVID-19 Vaccine (1 - 2023-2 5 season) 2024 Influenza Vaccine (#1) 2024 Cervical Cancer Screening: HPV 04/08/2029 04/08/2024 RSV Immunization Adult Patie nts (1 - 1-dose 75+ series) 2045 HIB Vaccines Aged Out No longer eligi [...] LAB MICROBIOLOGY METHOD 04/18/2024 2:06 PM EST [facility] Brushing/Spatula Cervix uteri structure / Unknown 04/08/2024 04/14/2024 7:47 AM EST us Alannah Mahajan MD LAB MOLECULAR DIAGNOSTICS ORD ERABLES Final Result [facility] [address] [place] [address], from Last 3 Months or Most Recently Relevant to Health Maintenance Insurance * Guarantor: July Account Type Relation to Patient Date of Phone Billing Address Personal/Family Self 1970 [phone] x1 (Work) [address] [place] [address] [place]ICA[place] - [place]
--- OUTSIDE RECORDS SUMMARY | 2025-02-24 11:21 | XMS_ITS | Encounter Summary ---
Author Organization [facility] Address [address] [place] [address] Care Team Providers Care Letterer Name Role Phone Unavailable Primary Care Provider Unavailabl e Encounter Details Date Type Department Care Team (Late st Contact Info) Description 04/14/2024 Lab Requisition [facility] - Main Lab [address] [facility] [employer] [place] [address] Alannah Mahajan MD [address] [place] [address] [place], [place] [address] Encounter for screening for malignant neoplasm of [...] LAB MICROBIOLOGY METHOD 04/18/2024 2:06 PM EST [facility] Brushing/Spatula Cervix uteri structure / Unknown 04/08/2024 04/14/2024 7:47 AM EST us Alannah Mahajan MD LAB MOLECULAR DIAGNOSTICS ORD ERABLES Final Result Performing Organization Address City/[facility]/ZIP Co de Phone Number [facility] [address] [place] [address], [place] [phone] * Pap smear (04/08/2024 12:00 AM EST) Interpretation Negative for intraepithelial lesion or malignancy 04/21/2024 10:46 AM EST [facility] General Categorization Negative 04/21/2024 10:[address] [facility] Specimen Adequacy Satisfactory for evaluation, endocervical/gonzalez sformation zone component absent 04/21/2024 10:[address] [facility] Pap Methodology Liquid Based Pap Test 04/21/2024 10:46 AM EST [facility] Disclaimer The Pap test is a screening test which carries an inherent false negative rate. These test results should be correlated with the patient's clinical findings and history. This Pap test was processed using an automated screening system. Technical cytopathology services provided by [facility], at [address] [place] [id number] (CLIA # [id number]/Tin Murrieta MD, [employer] Field Agent.) 04/21/2024 10:[address] [facility] Console Pap Interpretation Reported 04/21/2024 10:[address] [facility] Brushing/Spatula Cervix uteri structure / Unknown 04/08/2024 04/14/2024 7:47 AM EST us Alannah Mahajan MD LAB CYTOLOGY ORDERABLES Final Result [facility] [address] [place] [address], [place] [phone] documented in this encounter Visit Diagnoses Diagnosis Encounter for screening for malignant neoplasm of cervix documented in this encounter
== END 2025-02-24 09:52 | disposition home or self-care (01) ==
LOC: HO.LAB 09:51
PROVIDERS: PCP Internal Medicine; Visit Provider Internal Medicine
DX: I10 Essential (primary) hypertension (principal); E78.00 Pure hypercholesterolemia, unspecified; F32.2 Major depressive disorder, single episode, severe without psychotic features; Z72.0 Tobacco use
CPT/HCPCS: 36415; 80053; 80061